=== PATIENT | female | born 1975 | race Hispanic/Latino ===

== ENCOUNTER 2018-11-30 07:59 | Outpatient (CLI) | payer BC ==
--- NOTE | 2018-11-30 09:52 | CT ---
CT ABDOMEN AND PELVIS WITHOUT AND WITH CONTRAST: COMPARISON: Renal ultrasound 10/08/2016. HISTORY: Microscopic hematuria. TECHNIQUE: Multiple contiguous axial images were obtained in a CT of the abdomen and pelvis without and with IV contrast. Postcontrast images were obtained in nephrographic and excretory phases. Sagittal and cor onal reformats were performed. FINDINGS: There are hypodensities in the kidneys measuring up to 1.6 cm in size which represent simple cysts. No calcifications are seen in either kidney. No suspicious renal lesions are identified. Both renal collecting systems are normal in appearance. No filling defect is seen within either ureter or with in the urinary bladder. The liver, gallbladder, adrenal glands, spleen, and pancreas are unremarkable. No free air, free flu id, or stranding changes are seen in the abdomen or pelvis. The large and small bowel are unremarkable. The reproductive organs are unremarkable. The uterus is retroverted. No abdominal or pelvic lymphadenopathy are seen. The osseous structures and visualized abdominal wall soft tissues are unremarkable. The patient has bilateral breast implants. IMPRESSION: Bilateral renal cysts. POS: C
== END 2018-11-30 08:00 | disposition home or self-care (01) ==
LOC: BICCT 07:59
PROVIDERS: ATTEND Urology
DX: R31.29 Other microscopic hematuria (principal); N28.1 Cyst of kidney, acquired
CPT/HCPCS: 74178

== ENCOUNTER 2022-02-07 13:35 | Inpatient (IN) | payer BC ==
[2022-02-07] MEDS ORDERED: Acetaminophen 325 MG TAB PO PRN (14:35)
[2022-02-07] MEDS ORDERED: Ondansetron PF 4 MG/2 ML Vial IVP PRN (14:35)
[2022-02-07] MEDS ORDERED: Morphine 2 MG/ML VIAL SLOW IVP PRN (14:50)
[2022-02-07 16:07] VITALS: BMI 22.9
[2022-02-07] MEDS ORDERED: Iopamidol 30 ML ONE (16:35)
[2022-02-07] MEDS ORDERED: Midazolam HCl 2 mg/2 ml Vial ONE (16:38)
[2022-02-07] MEDS ORDERED: fentaNYL Citrate/PF 100 MCG/2 ML SYRINGE ONE (16:38)
[2022-02-07] MEDS ORDERED: Lidocaine 1% PF 5 ML VIAL ONE (17:52)
[2022-02-07] MEDS ORDERED: Ondansetron PF 4 MG/2 ML Vial ONE (17:52)
[2022-02-07] MEDS ORDERED: Dexamethasone 20 MG/5 ML VIAL ONE (17:52)
[2022-02-07] MEDS ORDERED: PROPOFOL 200 MG/20 ML VIAL ONE (17:52)
[2022-02-07] MEDS ORDERED: diphenhydrAMINE 50 MG/ML VIAL ONE (17:52)
[2022-02-07] MEDS ORDERED: Ketorolac Tromethamine 30 MG/ML VIAL ONE (17:52)
[2022-02-07] MEDS: Lactated Ringer's 1,000 ML IV SCH (18:02)
[2022-02-07] MEDS ORDERED: Ondansetron HCl/PF 4 MG/2 ML Vial IVP PRN (18:33)
[2022-02-07] MEDS ORDERED: HYDROmorphone 2 MG/ML VIAL SLOW IVP PRN (18:33)
[2022-02-07] MEDS ORDERED: Promethazine HCl 25 MG/ML VIAL IM PRN (18:33)
[2022-02-07] MEDS ORDERED: Promethazine HCl 25 MG/ML VIAL IVPB PRN (18:33)
[2022-02-07 18:39] LABS: SARS-CoV-2 NAA Rapid Test Not Detected (NotDetected)
[2022-02-07] MEDS ORDERED: Acetaminophen 325 MG TAB ONE ×2 (18:48)
[2022-02-07] MEDS: Piperacillin/Tazobactam 3.375 GM in Sodium Chloride 0.9% 100 ML IVPB SCH (21:00)
[2022-02-07] MEDS ORDERED: Piperacillin/Tazobactam 4.5 GM in Sodium Chloride 0.9% 100 ML IVPB SCH (22:00)
[2022-02-08] MEDS: Lactated Ringer's 1,000 ML IV SCH ×3 (01:00→21:00)
[2022-02-08] MEDS: Piperacillin/Tazobactam 3.375 GM in Sodium Chloride 0.9% 100 ML IVPB SCH ×3 (02:30→19:15)
[2022-02-08] MEDS: Vancomycin 1 GM in Premix Bag 1 BAG IVPB SCH ×2 (04:30→17:31)
[2022-02-08 05:49] LABS: #Lymphocytes 0.5 thou/uL (1.20-3.40); #Monocytes 0.1 thou/uL (0.11-0.59); #Neutrophils 16.8 thou/uL (1.40-6.50); %Eosinophils 0.1 % (0.0-10.0); %Monocytes 0.5 % (0.0-10.0); %Neutrophils 96.4 % (42.0-75.0); Hemoglobin 10.2 g/dL (12.0-16.0); Mean Corpuscular HGB CONC 32.4 g/dL (32.0-36.0); Mean Corpuscular Volume 86.2 fL (78.0-98.0); Mean Platelet Volume 6.1 fL (7.4-10.4); Platelet Count 360 thou/uL (130-400); RBC Distribution Width 13.4 % (11.5-14.5); Red Blood Cell (RBC) Count 3.66 mill/uL (4.20-5.40); White Blood Cell (WBC) Count 17.4 thou/uL (4.8-10.8)
[2022-02-08 06:18] LABS: Anion Gap 13 mmol/L (10-20); BUN (Urea Nitrogen) 10 mg/dL (7.0-18.7); Calc. Creatinine Clearance 101 mL/min (70-130); Calcium 7.7 mg/dL (7.8-10.44); Carbon Dioxide 19 mmol/L (22-29); Chloride 107 mmol/L (98-107); Glucose 127 mg/dL (70-105); Potassium 3.4 mmol/L (3.5-5.1); Sodium 136 mmol/L (136-145)
[2022-02-08] MEDS: Enoxaparin Sodium 40 MG/0.4 ML SYRINGE SC SCH (08:59)
[2022-02-09] MEDS: Piperacillin/Tazobactam 3.375 GM in Sodium Chloride 0.9% 100 ML IVPB SCH ×4 (02:00→18:45)
[2022-02-09 03:43] LABS: Vancomycin, Trough 9.9 ug/mL
[2022-02-09] MEDS: Vancomycin HCl 1.25 GM in Sodium Chloride 0.9% 250 ML 250 ML IVPB SCH ×2 (05:10→16:10)
[2022-02-09] MEDS: Enoxaparin Sodium 40 MG/0.4 ML SYRINGE SC SCH (08:54)
[2022-02-09] MEDS: HYDROcodone/Acetaminophen 5/325 mg Tablet PO PRN ×2 (08:57→18:39)
[2022-02-09 10:13] LABS: #Lymphocytes 0.9 thou/uL (1.20-3.40); #Monocytes 0.5 thou/uL (0.11-0.59); #Neutrophils 10.2 thou/uL (1.40-6.50); %Eosinophils 0.1 % (0.0-10.0); %Monocytes 4.2 % (0.0-10.0); %Neutrophils 87.5 % (42.0-75.0); Hemoglobin 10.6 g/dL (12.0-16.0); Mean Corpuscular HGB CONC 31.3 g/dL (32.0-36.0); Mean Corpuscular Hemoglobin 27.1 pg (27.0-31.0); Mean Corpuscular Volume 86.4 fL (78.0-98.0); Mean Platelet Volume 6.1 fL (7.4-10.4); Platelet Count 409 thou/uL (130-400); RBC Distribution Width 13.6 % (11.5-14.5); Red Blood Cell (RBC) Count 3.91 mill/uL (4.20-5.40); White Blood Cell (WBC) Count 11.7 thou/uL (4.8-10.8)
[2022-02-09] MEDS: Lactated Ringer's 1,000 ML IV SCH ×2 (15:56→19:11)
[2022-02-10] MEDS: Piperacillin/Tazobactam 3.375 GM in Sodium Chloride 0.9% 100 ML IVPB SCH ×2 (02:24→09:16)
[2022-02-10] MEDS: Lactated Ringer's 1,000 ML IV SCH (03:09)
[2022-02-10] MEDS: Vancomycin HCl 1.25 GM in Sodium Chloride 0.9% 250 ML 250 ML IVPB SCH (04:51)
[2022-02-10] MEDS: Enoxaparin Sodium 40 MG/0.4 ML SYRINGE SC SCH (09:16)
[2022-02-10] MEDS ORDERED: Docusate 100 MG CAP PO SCH (10:45)
[2022-02-10 11:30] VITALS: BP 125/82; TEMP 99
[2022-02-11] MEDS ORDERED: Docusate 100 MG CAP PO SCH (09:00)
== END 2022-02-10 13:50 | disposition home or self-care (01) | DRG 854 ==
LOC: SURG A 14:11
PROVIDERS: ADMIT Internal Medicine; ATTEND Internal Medicine
PROC: 0T768DZ Dilation of Right Ureter with Intraluminal Device, Via Natural or Artificial Opening Endoscopic (ICD-10-PCS; principal; 2022-02-07)
PROC: BT1D1ZZ Fluoroscopy of Right Kidney, Ureter and Bladder using Low Osmolar Contrast (ICD-10-PCS; 2022-02-07)
DX: A41.9 Sepsis, unspecified organism (principal); N13.6 Pyonephrosis; N28.1 Cyst of kidney, acquired; I10 Essential (primary) hypertension; Z20.822 Contact with and (suspected) exposure to COVID-19
CPT/HCPCS: 36415; 74420; 80048; 80202; 85025; C2617; J1100; J1200; J1650; J1885; J2250; J2270; J2405; J2543; J2704; J3370; J3490; J7050; J7120; Q9967; U0002

== ENCOUNTER 2022-04-20 18:42 | Emergency (ER) | payer BC ==
[2022-04-20 19:49] LABS: #Basophils 0.1 thou/uL (0.0-0.2); #Eosinphils 0.1 thou/uL (0.0-0.7); #Lymphocytes 1.6 thou/uL (1.20-3.40); #Monocytes 0.5 thou/uL (0.11-0.59); #Neutrophils 9.2 thou/uL (1.40-6.50); %Basophils 0.5 % (0.0-1.0); %Eosinophils 0.6 % (0.0-10.0); %Monocytes 4.3 % (0.0-10.0); %Neutrophils 80.6 % (42.0-75.0); Hemoglobin 10.7 g/dL (12.0-16.0); Mean Corpuscular Hemoglobin 28.1 pg (27.0-31.0); Mean Platelet Volume 6.3 fL (7.4-10.4); Platelet Count 451 thou/uL (130-400); RBC Distribution Width 13.9 % (11.5-14.5); Red Blood Cell (RBC) Count 3.82 mill/uL (4.20-5.40); White Blood Cell (WBC) Count 11.4 thou/uL (4.8-10.8)
[2022-04-20 19:53] LABS: BHCG - Serum Negative (NEGATIVE); Pregs Control Background? CLEAR/WHITE (CLR/WHITE); Pregs Control Bar Appear? YES (CONTROL BAR)
[2022-04-20 20:09] LABS: ALT (SGPT) 10 U/L (8-55); AST (SGOT) 13 U/L (5-34); Albumin 3.6 g/dL (3.5-5.0); Alkaline Phosphatase 69 U/L (40-110); Anion Gap 14 mmol/L (10-20); BUN (Urea Nitrogen) 21 mg/dL (7.0-18.7); Bilirubin, Total 0.4 mg/dL (0.2-1.2); CK (CPK) 50 U/L (29-168); Calc. Creatinine Clearance 0 mL/min (70-130); Calcium 8.4 mg/dL (7.8-10.44); Carbon Dioxide 19 mmol/L (22-29); Chloride 103 mmol/L (98-107); Estimated GFR 63; Globulin 3.1 g/dL (2.4-3.5); Glucose 89 mg/dL (70-105); Magnesium 1.5 mg/dL (1.6-2.6); Potassium 3.5 mmol/L (3.5-5.1); Protein, Total 6.7 g/dL (6.0-8.3); Sodium 132 mmol/L (136-145)
[2022-04-20 20:56] LABS: Bilirubin Negative (Negative); Blood, Urine 2+ (Negative); Clarity Turbid (Clear); Glucose, Urine (Dipstick) Normal (Negative); Ketone, Urine 20 mg/dL (Negative); Leukocyte Negative Leu/uL (Negative); Mucous/LPF Rare LPF (<2+); Nitrite Negative (Negative); Protein, Urine (Dipstick) 30 mg/dL (Neg-Trace); Specific Gravity, Urine 1.024 (1.002-1.036); Squamous Epithelial 0-3 HPF (0-3); Urobilinogen Normal mg/dL (Less than 2)
[2022-04-20 21:11] LABS: Bacteria/HPF 1+ HPF (None Seen)
== END 2022-04-20 21:45 | disposition home or self-care (01) ==
LOC: ERS 18:42
DX: E86.0 Dehydration (principal); E83.42 Hypomagnesemia
CPT/HCPCS: 36415; 80053; 81003; 81015; 82550; 83735; 84484; 84703; 85025; 93005; 96360